=== PATIENT | female | born 1985 | race Caucasian/White ===

== ENCOUNTER 2017-12-19 11:33 | Emergency (ER) | payer OTHER ==
[2017-12-19] MEDS: IBUPROFEN 200 MG TAB PO (15:09)
== END 2017-12-19 16:33 | disposition home or self-care (01) ==
LOC: FTE 11:33
DX: S99.922A Unspecified injury of left foot, initial encounter (principal); W18.39XA Other fall on same level, initial encounter; Y92.9 Unspecified place or not applicable
CPT/HCPCS: 72100; 73630-LT; 99284-25